=== PATIENT | female | born 1985 | race Caucasian/White ===

== ENCOUNTER → 2023-11-29 10:03 | Outpatient (REF) | payer BC, SELFPAY | LOC: RAD 10:03 | PROVIDERS: ATTENDING PHYSICIAN Physician Assistant; FAMILY PHYSICIAN Family Medicine | DX: R10.11 Right upper quadrant pain (principal); K43.9 Ventral hernia without obstruction or gangrene | CPT/HCPCS: 76700 ==

== ENCOUNTER → 2024-03-07 16:30 | Outpatient (REF) | payer BC, SELFPAY ==
[2024-03-08 14:21] LABS: Urine Albumin Negative (Neg - Trace); Urine Bilirubin Negative (Negative); Urine Character Clear (Clear); Urine Color Yellow; Urine Glucose Negative (Negative); Urine Ketone Negative (Negative); Urine Leukocyte Negative (Negative); Urine Nitrite Negative (Negative); Urine Occult Blood 1+ (Negative); Urine Urobilinogen Negative (Neg - 1+)
[2024-03-08 14:53] LABS: Urine Red Blood Cell 0-2 /HPF (0-2); Urine White Cell 0-2 /HPF (0-5)
== END ==
LOC: CLAB 16:30
PROVIDERS: ATTENDING PHYSICIAN Family Medicine
DX: Z01.89 Encounter for other specified special examinations (principal); R35.0 Frequency of micturition
CPT/HCPCS: 81003; 81015

== ENCOUNTER → 2024-04-06 09:10 | Outpatient (REF) | payer BC, SELFPAY ==
[2024-04-06 10:29] LABS: INR 1.05; PT 13.5 Sec (11.4-14.6)
[2024-04-06 10:30] LABS: APTT 27.2 Sec (23.4-35.0)
[2024-04-06 12:05] LABS: % Basophils 0.5 % (0-2); % Eosinophils 1.2 % (0-6); % Immature Granulocytes 0.3 % (0-0.5); % Monocytes 6.5 % (1.7-9.3); % Neutrophils 62.5 % (42.2-75.2); Absolute Eosinophils 0.1 10^3/uL (0-0.7); Absolute Lymphocytes 1.7 10^3/uL (1.2-3.4); Absolute Monocytes 0.4 10^3/uL (0.1-0.6); Absolute Neutrophils 3.7 10^3/uL (1.4-6.5); Hematocrit 39.4 % (37.0-47.0); Hemoglobin 13.4 g/dL (12.0-16.0); Mean Corpuscular Hgb 30.6 pg (27.0-31.0); Mean Platelet Volume 9.5 fL (7.4-10.4); Nucleated Red Blood Cells % 0 %; Platelet Count 267 10^3/uL (130-400); Red Blood Cell Count 4.38 10^6/uL (4.20-5.40); Red Cell Dist. Width 12.8 % (11.5-14.5); White Blood Cell Count 5.9 10^3/uL (4.8-10.8)
== END ==
LOC: REG 09:10
PROVIDERS: ATTENDING PHYSICIAN Family Medicine
DX: R23.3 Spontaneous ecchymoses (principal); R42 Dizziness and giddiness; R79.9 Abnormal finding of blood chemistry, unspecified
CPT/HCPCS: 36415; 85025; 85610; 85730

== ENCOUNTER → 2024-05-11 13:40 | Outpatient (REF) | payer BC, SELFPAY ==
[2024-05-11 15:19] LABS: Erythrocyte Sed Rate 11 mm/hour (0-20)
[2024-05-11 15:39] LABS: C-Reactive Protein < 5.00 mg/L (0.0-10.00)
[2024-05-14 00:55] LABS: ANA, IgG Reflex to HEp-2 None Detected (None Detected)
== END ==
LOC: REG 13:40
PROVIDERS: ATTENDING PHYSICIAN Internal Medicine Gastroenterology; FAMILY PHYSICIAN Family Medicine
DX: M25.50 Pain in unspecified joint (principal); R23.3 Spontaneous ecchymoses; R23.8 Other skin changes
CPT/HCPCS: 36415; 82595; 84155; 84165; 85652; 86038; 86140; 86225; 86430; 86618

== ENCOUNTER → 2024-05-15 08:58 | Outpatient (REF) | payer BC, SELFPAY ==
[2024-05-15 11:07] LABS: IgA 234 mg/dl (70-400)
[2024-05-16 15:46] LABS: tTG IgA Antibody 4.4 EU/ml (0-19); tTG IgG Antibody 7.6 EU/ml (0-19)
[2024-05-17 18:19] LABS: Endomysial IgA Antibody Titer <1:10 (<1:10)
== END ==
LOC: REG 08:58
PROVIDERS: ATTENDING PHYSICIAN Internal Medicine Gastroenterology; FAMILY PHYSICIAN Family Medicine
DX: K90.0 Celiac disease (principal); R19.7 Diarrhea, unspecified
CPT/HCPCS: 82653; 82705; 82784; 83516; 83993; 86231; 87045; 87046; 87077; 87328; 87329; 87427; 89055

== ENCOUNTER 2024-05-17 06:02 | Outpatient (RCR) | payer BC, SELFPAY | END 2024-05-17 23:59 | disposition home or self-care (01) | LOC: RPT 06:02 | PROVIDERS: ATTENDING PHYSICIAN Family Medicine | DX: M62.08 Separation of muscle (nontraumatic), other site (principal); Z73.6 Limitation of activities due to disability | CPT/HCPCS: 97112; 97161 ==

== ENCOUNTER 2024-06-13 16:00 | Outpatient (RCR) | payer BC, SELFPAY | END 2024-06-13 23:59 | disposition home or self-care (01) | LOC: RPT 16:00 | PROVIDERS: ATTENDING PHYSICIAN Family Medicine | DX: M62.08 Separation of muscle (nontraumatic), other site (principal); Z73.6 Limitation of activities due to disability | CPT/HCPCS: 97110; 97112 ==

== ENCOUNTER 2024-07-16 16:02 | Outpatient (RCR) | payer BC, SELFPAY | END 2024-07-16 23:59 | disposition home or self-care (01) | LOC: RPT 16:02 | PROVIDERS: ATTENDING PHYSICIAN Family Medicine | DX: M62.08 Separation of muscle (nontraumatic), other site (principal); Z73.6 Limitation of activities due to disability; R20.0 Anesthesia of skin; R20.2 Paresthesia of skin; R53.1 Weakness | CPT/HCPCS: 97110; 97112 ==

== ENCOUNTER → 2024-07-25 12:19 | Outpatient (REF) | payer BC, SELFPAY ==
[2024-07-25 13:30] LABS: % Basophils 0.4 % (0-2); % Eosinophils 1.4 % (0-6); % Immature Granulocytes 0.2 % (0-0.5); % Lymphocytes 24.6 % (20.5-51.1); % Monocytes 7.7 % (1.7-9.3); % Neutrophils 65.7 % (42.2-75.2); Absolute Eosinophils 0.1 10^3/uL (0-0.7); Absolute Lymphocytes 1.4 10^3/uL (1.2-3.4); Absolute Monocytes 0.4 10^3/uL (0.1-0.6); Absolute Neutrophils 3.7 10^3/uL (1.4-6.5); Hematocrit 38.9 % (37.0-47.0); Mean Corp Hgb Conc. 33.4 g/dL (33.0-37.0); Mean Corpuscular Hgb 30.5 pg (27.0-31.0); Mean Corpuscular Volume 91.3 fL (81.0-99.0); Nucleated Red Blood Cells % 0 %; Platelet Count 227 10^3/uL (130-400); Red Blood Cell Count 4.26 10^6/uL (4.20-5.40); Red Cell Dist. Width 12.6 % (11.5-14.5); White Blood Cell Count 5.6 10^3/uL (4.8-10.8)
[2024-07-25 15:46] LABS: ALT (SGPT) 17 U/L (0-35); AST (SGOT) 23 U/L (14-36); Albumin 4.6 g/dl (3.5-5.0); Alkaline Phosphatase 39 U/L (38-126); Blood Urea Nitrogen 15 mg/dl (7-17); Calcium 9.1 mg/dl (8.4-10.2); Carbon Dioxide 30 mmol/L (22-30); Chloride 100 mmol/L (98-107); Glucose 86 mg/dl (70-99); Sodium 142 mmol/L (135-145); Total Bilirubin 0.2 mg/dl (0.2-1.3); Total Protein 7.3 g/dl (6.3-8.2); eGFR > 60.00
[2024-07-25 16:52] LABS: Folate 3.6 ng/ml (2.76-20); Vitamin B12 524 pg/ml (239-931)
== END ==
LOC: REG 12:19
PROVIDERS: ATTENDING PHYSICIAN Internal Medicine Gastroenterology; FAMILY PHYSICIAN Nurse Practitioner
DX: K90.0 Celiac disease (principal)
CPT/HCPCS: 36415; 80053; 82607; 82652; 82746; 84443; 84590; 85025

== ENCOUNTER 2024-09-27 16:04 | Outpatient (RCR) | payer BC, SELFPAY | END 2024-09-27 23:59 | disposition home or self-care (01) | LOC: RPT 16:04 | PROVIDERS: ATTENDING PHYSICIAN Family Medicine | DX: M62.08 Separation of muscle (nontraumatic), other site (principal); Z73.6 Limitation of activities due to disability; R20.0 Anesthesia of skin; R20.2 Paresthesia of skin; R53.1 Weakness | CPT/HCPCS: 97110; 97112; 97161 ==

== ENCOUNTER 2024-10-04 16:44 | Outpatient (RCR) | payer BC, SELFPAY | END 2024-10-04 23:59 | disposition home or self-care (01) | LOC: RPT 16:44 | PROVIDERS: ATTENDING PHYSICIAN Family Medicine | DX: M62.08 Separation of muscle (nontraumatic), other site (principal); Z73.6 Limitation of activities due to disability; R20.0 Anesthesia of skin; R20.2 Paresthesia of skin; R53.1 Weakness | CPT/HCPCS: 97110; 97112 ==

== ENCOUNTER 2024-12-13 06:21 | Day surgery (SDC) | payer BC, SELFPAY | END 2024-12-13 12:19 | disposition home or self-care (01) | LOC: GI 06:21 | PROVIDERS: ATTENDING PHYSICIAN Internal Medicine Gastroenterology | DX: Z12.11 Encounter for screening for malignant neoplasm of colon (principal); Z86.0101 Personal history of adenomatous and serrated colon polyps; K63.89 Other specified diseases of intestine | CPT/HCPCS: 45380; 88305 ==